=== PATIENT | male | born 1980 | race Caucasian/White ===

== ENCOUNTER 2018-01-08 09:53 | Emergency (ER) | payer MEDICAID ==
[2018-01-08] MEDS: DEXAMETHASONE 10 MG/ML 1 ML INJ IM (13:39)
[2018-01-08] MEDS: IPRATROPIUM (NEB) 0.5 MG/2.5 ML AMP HHN (13:43)
[2018-01-08] MEDS: ALBUTEROL 0.083% (NEB) 2.5 MG/3 ML AMP HHN (13:43)
== END 2018-01-08 15:07 | disposition home or self-care (01) ==
LOC: FTE 09:53
DX: J45.901 Unspecified asthma with (acute) exacerbation (principal); J06.9 Acute upper respiratory infection, unspecified; F17.210 Nicotine dependence, cigarettes, uncomplicated
CPT/HCPCS: 71045; 94664; 96372; 99284-25